=== PATIENT | female | born 2000 | race Two or more races ===

== ENCOUNTER 2022-07-28 18:54 | Emergency (ER) | payer OTHER ==
[~2022-07-28] VITALS: Ht 167.6 cm; Wt 93.0 kg
[2022-07-28 19:30] VITALS: BP 130/69
--- NOTE | 2022-07-28 19:45 | NUR ---
PATIENT BIB[facility] C/O FEELING SI FROM [facility]. PATIENT IS A/O X 4, RR EVEN AND UNLABORED, VSS. PATIENT TAKEN TO ER BED 15. PATIENT WANDED BELONGINGS TAKEN PATIENT IN GOWN. SITTER AT BEDSIDE.
[2022-07-28 20:48] LABS: BASOPHILS % (AUTO) 0.3 % (0.0-2.0); EOSINOPHILS % (AUTO) 0.6 % (0.0-6.0); HEMATOCRIT 43 % (33-45); HEMOGLOBIN 13.9 g/dL (11.5-14.8); LYMPHOCYTES # (AUTO) 1.9 K/uL (0.8-4.8); LYMPHOCYTES % (AUTO) 15.5 % (20.0-44.0); MEAN CORPUSCULAR HGB CONC 33 g/dl (31.0-36.0); MEAN CORPUSCULAR VOLUME 89 fL (82-100); MONOCYTES # (AUTO) 0.7 K/uL (0.1-1.30); MONOCYTES % (AUTO) 5.5 % (2.0-12.0); NEUTROPHILS # (AUTO) 9.4 K/uL (1.8-8.9); NEUTROPHILS % (AUTO) 78.1 % (43.0-81.0); PLATELET COUNT (AUTO) 391 K/uL (150-450); RED BLOOD CELL COUNT(AUTO) 4.78 MIL/uL (4.0-5.2)
[2022-07-28 20:58] LABS: BILIRUBIN,URINE NEGATIVE (NEGATIVE); COLOR,URINE YELLOW (YELLOW); LEUKOCYTE ESTERASE ,URINE SMALL (NEGATIVE); NITRITE, URINE NEGATIVE (NEGATIVE); PROTEIN,URINE NEGATIVE (NEGATIVE); UGLUCOSE NEGATIVE (NEGATIVE); UROBILINOGEN,URINE 0.2 EU/dL (0.2)
[2022-07-28 20:58] LABS: ALANINE AMINOTRANSFERASE 24 U/L (12-78); ALBUMIN 4.1 g/dL (3.4-5.0); ALCOHOL, BLOOD < 3 mg/dL (0-0); ALKALINE PHOSPHATASE 85 U/L (46-116); ASPARTATE AMINOTRANSFERASE 17 U/L (15-37); BILIRUBIN,DIRECT 0.1 mg/dL (0.0-0.2); BILIRUBIN,TOTAL 0.2 mg/dL (0.2-1.0); CALCIUM, SERUM 9.5 mg/dL (8.5-10.1); CARBON DIOXIDE 27 mmol/L (21-32); CHLORIDE 102 mmol/L (98-107); CREATININE 0.9 mg/dL (0.6-1.3); GLUCOSE 104 mg/dL (74-106); POTASSIUM 3.9 mmol/L (3.5-5.1); SODIUM SERUM 136 mmol/L (136-145); TOTAL PROTEIN, SERUM 8.5 g/dL (6.4-8.2); UREA NITROGEN, BLOOD 11 mg/dL (7-18)
[2022-07-28 21:01] LABS: ACETAMINOPHEN 0 ug/ml (10-30)
[2022-07-28 21:14] LABS: BACTERIA,URINE 1+ /HPF (None Seen); RBC,URINE 0-2 /HPF (0-2); SQUAMOUS EPITHELIAL CELL,UR 21-50 /HPF (None Seen)
--- NOTE | 2022-07-28 21:49 | NUR ---
COVID SWAB COLLECTED
--- NOTE | 2022-07-28 22:12 | NUR ---
BY[facility] - FACILITY STAFF [phone] EMPOWER RECOVERY
--- NOTE | 2022-07-28 22:42 | NUR ---
SHON SAWYER PAGED FOR EVAL.
--- NOTE | 2022-07-28 23:03 | NUR ---
[facility] CRISIS TEAM AT PT'S BEDSIDE
--- NOTE | 2022-07-29 00:10 | NUR ---
BYRON FROM THE FACILITY WAS NOTIFIED THAT THE PATIENT WAS CLEARED PSYCHIATRICALLY AND READY TO BE PICKED UP. WILL BE SENDING STAFF FROM [facility] TO [facility]
== END 2022-07-29 00:20 | disposition home or self-care (01) ==
LOC: ER 18:57
DX: R45.88 Nonsuicidal self-harm (principal); S61.511A Laceration without foreign body of right wrist, initial encounter; X78.8XXA Intentional self-harm by other sharp object, initial encounter; Y92.538 Other ambulatory health services establishments as the place of occurrence of the external cause; F31.9 Bipolar disorder, unspecified
CPT/HCPCS: 99285; 85025; 80048; 87086; 80076; 81001; 36415; 87426; 80143; 80320; 80307; C9803; G0480